=== PATIENT | male | born 1990 | race Caucasian/White ===

== ENCOUNTER 2017-07-02 01:00 | Emergency (ER) | payer SELFPAY ==
[~2017-07-02] VITALS: Ht 175.3 cm; Wt 87.5 kg
[~2017-07-02 01:00] MED LIST: CYCL10TA9 PO; HYDR-34 PO; IBP800T PO; NYQUIL
--- OUTSIDE RECORDS SUMMARY | 2017-07-02 01:07 | XMS REPORT | Continuity of Care Document ---
Author Author [facility] Address Unknown Phone Unavailable Allergies Medications Problems Date Dx Coded Attending Type Code Diagnosis Diagnosed By 04/19/2014 LOUIE LONGORIA APRN 382.9 OTITIS MEDIA Procedures Results Encounters ACCT No. Visit Date/Time Discharge Status Pt. Type Provider Facility Loc./Unit Complaint [id number] 04/19/2014 07:48:00 04/19/2014 23: 59:59 CLS Outpatient LOUIE LONGORIA APRN
[2017-07-02] MEDS ORDERED: TETANUS,DIPTH,PERTUSS P/F (BOOSTRIX) 0.5 ML VIAL IM ONE (01:30)
[2017-07-02] MEDS ORDERED: RX-MUPIROCIN (BACTROBAN) 2% OINT 22 GM TUBE TOP STA (01:31)
--- NOTE | 2017-07-02 01:35 | ED Upper Extremity ---
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 NO ACTIVE BLEEDING NOTED AT THIS TIME. AVULSION NOTED TO TIP OF THUMB. NO OTHER C/O VOICED Nursing Sepsis Screen: No Definite Risk Source: patient History of Present Illness Time seen by provider: 01:20 Initial Comments PT STATES HE WAS WORKING AT [employer] AND WAS CUTTING MEAT AND CUT THE TIP OF HIS THUMB OCCURRED AROUND 2100 TONIGHT PT CONTINUED TO WORK AND FINISHED HIS SHIFT PT STATES HIS EMPLOYER WAS AWARE OF INJURY, BUT PT CAME TO ER ON HIS OWN. STATES A TEACHER OF GIFTED STUDENTS CO-WORKER WIPED IT OFF WITH ALCOHOL AND HE WRAPPED IT IN DUCT TAPE PT IS RIGHT HANDED NO PRIOR INJURY TO LEFT THUMB PT IS NOT UP TO DATE ON TETANUS VACCINATION PCP: DR. BUSBY Allergies and Home Medications Allergies Coded Allergies: No Known Drug Allergies (Unverified , 10/28/10) Home Medications Cyclobenzaprine Hcl 10 Mg Tablet, 1 EACH PO TID PRN, #14 Ref 0 Prescribed by: RUKHSANA QUINN on 07/05/1037 Hydrocodone Bit/Acetaminophen 1 Ea Tablet, 1 TAB PO Q4H PRN, #10 Ref 0 Prescribed by: RUKHSANA QUINN on 07/05/1037 Ibuprofen 800 Mg Tablet, 1 EACH PO TID PRN, #14 Ref 0 Prescribed by: RUKHSANA QUINN on 07/05/1037 [Nyquil] , (Reported) Constitutional: no symptoms reported Musculoskeletal: see HPI Skin: see HPI Psychiatric/Neurological: No Symptoms Reported Past Teyhqqx-Iijwui-Jginjg Hx Patient Social History Alcohol Use: Denies Use Recreational Drug Use: No Smoking Status: Never a Smoker Recent Foreign Travel: No Contact w/Someone Who Travel: No Recent Infectious Disease Expo: No Recent Hopitalizations: No Physical Abuse: No Sexual Abuse: No Mistreated: No Fear: No Immunizations Up To Date Tetanus Booster (TDap): More than 5yrs Surgeries History of Surgeries: Yes (LT EAR ) Respiratory History of Respiratory Disorde: No Cardiovascular History of Cardiac Disorders: No Neurological History of Neurological Disord: No Genitourinary History of Genitourinary Disor: No Gastrointestinal History of Gastrointestinal Di: No Musculoskeletal History of Musculoskeletal Dis: No Endocrine History of Endocrine Disorders: No HEENT History of HEENT Disorders: No Cancer History of Cancer: No Psychosocial History of Psychiatric Problem: No Suicide Risk Score: 0 Integumentary History of Skin or Integumenta: No Blood Transfusions History of Blood Disorders: No Physical Exam Vital Signs Vital Sign - Last 12Hours 07/02/17 01:19 Temp 98.1 Pulse 84 Resp 20 B/P (MAP) 137/87 Pulse Ox 98 O2 Delivery Room Air Capillary Refill : Less Than 3 Seconds General Appearance: WD/WN, no apparent distress Hand: Left (THUMB WITH SUPERFICIAL, CIRCULAR AVULSION OF SKIN FROM TIP OF THUMB --APPROX 1/2 CM DIAMETER. NO BLEEDING. . MOTOR/SENSORY/VASCUALR INTACT. 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, no motor/sensory deficits, alert, normal mood/affect, oriented x 3 Skin: normal color, warm/dry Progress/Results/Core Measures Results/Orders My Orders Orders - HASEEB FELDMAN DO Dipht,Pertuss(Acell),Tet Adult (Boostrix (07/02/17 01:30) Rx-Mupirocin 2% Oint (Rx-Bactroban) (07/02/17 01:31) Wound Dressing-Ed (07/02/17 01:31) Medications Given in ED Current Medications Medications Dose Ordered Sig/Kevin Route Start Time Stop Time Status Last Admin Dose Admin Diphtheria/ Tetanus/Acell Pertussis 0.5 ml ONCE ONCE IM 07/02/17 01:30 07/02/17 01:32 DC 07/02/17 01:32 0.5 ML Vital Signs/I&O Vital Sign - Last 12Hours 07/02/17 01:19 Temp 98.1 Pulse 84 Resp 20 B/P (MAP) 137/87 Pulse Ox 98 O2 Delivery Room Air Blood Pressure Mean: 104 Progress Note : Progress Note WOUND CLEANSED WITH BETASEPT, DRESSED WITH BACTROBAN AND GAUZE. Departure Impression Impression: Primary Impression: Avulsion of skin of left thumb Additional Impression: Uwaqfzlksy-amowmckev-zkusebn (DPT) vaccination administered at current visit Disposition: HOME, SELF-CARE Condition: Stable Departure-Patient Inst. Referrals: BEVERLY BUSBY DO (PCP/Family) Primary Care Physician Patient Instructions: Diphtheria and Tetanus Toxoids, and Acellular Pertussis Vaccine, SKIN AVULSION Add. Discharge Instructions: CLEAN WOUND 3 TIMES A DAY WITH ANTIBACTERIAL SOAP AND WATER, APPLY ANTIBIOTIC OINTMENT AND FRESH DRESSING 3 TIMES A DAY--OTHER CASEY KEEP CLEAN AND DRY KEEP AREA COVERED WHILE AT WORK TYLENOL AND MOTRIN NEEDED FOR PAIN FOLLOW UP WITH DR. BUSBY IF PROBLEMS All discharge instructions reviewed with patient and/or family. Voiced understanding. HASEEB FELDMAN DO Jul 02, 2017 01:35
[2017-07-02 02:09] VITALS: BP 116/68
== END 2017-07-02 02:09 | disposition home or self-care (01) ==
LOC: EDUNIT# 01:00 → ER 01:05
DX: S61.002A Unspecified open wound of left thumb without damage to nail, initial encounter (principal); Z23 Encounter for immunization; W26.0XXA Contact with knife, initial encounter; Y92.511 Restaurant or cafe as the place of occurrence of the external cause
CPT/HCPCS: 90715; 99284

== ENCOUNTER → 2018-09-22 | Outpatient (CLI) | payer BC ==
[~2018-09-22] MED LIST changes: +IOHEXOL 350 MG/ML 100 ML (OMNIPAQUE 350) VIAL IV ONE; +NS 100 ML (IVPB) BAG IV ONE; +RECEIVED CONTRAST (Hold Metformin) IV SCH
[2018-09-22 15:45] LABS: BUN/CREATININE RATIO 18; CREATININE SERUM 1.01 MG/DL (0.60-1.30); GFR ESTIMATED > 60
--- NOTE | 2018-09-22 16:48 | Diagnostic Imaging Report ---
PROCEDURE: CT neck soft tissue with contrast. TECHNIQUE: Multiple contiguous axial images were obtained through the neck after the administration of contrast. INDICATION: Dysphagia. FINDINGS: Epiglottis appears normal. Larynx appears normal. Parotid glands are normal. Submandibular glands appear normal. Neurovascular bundles appear normal. There is no prevertebral soft tissue swelling. There is no pharyngeal mucosal thickening. Tonsils are not enlarged. There is a 1 cm nodule in the anterolateral aspect of the right lobe of the thyroid. There are small lymph nodes in the anterior cervical chain which are likely reactive. IMPRESSION: Unremarkable CT of the soft tissues of the neck. Dictated by: Dictated on workstation # [id number]
== END ==
LOC: RAD 15:12
PROVIDERS: ATTEND Otolaryngology Otolaryngology/Facial Plastic Surgery
DX: F45.8 Other somatoform disorders (principal); K14.8 Other diseases of tongue; J35.8 Other chronic diseases of tonsils and adenoids; R13.10 Dysphagia, unspecified
CPT/HCPCS: 36415; 70491; 82565; 84520

== ENCOUNTER → 2018-10-03 | Outpatient (CLI) | payer BC ==
[~2018-10-03] MED LIST changes: -IOHEXOL 350 MG/ML 100 ML (OMNIPAQUE 350) VIAL IV ONE; -NS 100 ML (IVPB) BAG IV ONE; -RECEIVED CONTRAST (Hold Metformin) IV SCH
--- NOTE | 2018-10-04 08:26 | Diagnostic Imaging Report ---
PROCEDURE: US Thyroid. TECHNIQUE: Multiple real-time grayscale images were obtained of the thyroid in various projections. INDICATION: Thyroid nodule. FINDINGS: There are no prior thyroid ultrasound examinations available for comparison. The recent CT neck exam performed on 09/22/2018 did note a well-circumscribed 1 cm rounded area of low density in the right lobe of the thyroid. On this study, there is a 1.0 x 1.4 x 1.2 cm solid nodule in this area. In a patient of this age this finding is unlikely to be related to malignant process. Even so, if a tissue diagnosis is desired, an ultrasound-guided biopsy would be recommended. If there is no intervention at this time, then a short-term (six-month) followup thyroid ultrasound exam should be obtained. There also appear to be a few small hypoechoic lesions in the midportion of the left lobe. The largest of these measures just under 1 cm in size. I suspect that these are benign. There also appears to be a similar-sized hypoechoic lesion in inferior pole of the right lobe. The thyroid gland itself is borderline enlarged. The right lobe measures 5.9 x 2.4 x 2.2 cm while the left lobe is estimated to be 5.0 x 1.6 x 2.2 cm (normal gland size 4-5 x 2 x 2 cm or less). IMPRESSION: 1. There is a 1.0 x 1.4 x 1.2 cm solid nodule in the superior pole of the right lobe of the thyroid. Most likely, this corresponds to the density seen on the CT exam. Recommendations, as above. 2. The subcentimeter hypoechoic areas in the left lobe and in the inferior pole of the right lobe are most likely benign. Dictated by: Dictated on workstation # [id number]
== END ==
LOC: RAD 15:06
PROVIDERS: ATTEND Otolaryngology Otolaryngology/Facial Plastic Surgery
DX: E04.1 Nontoxic single thyroid nodule (principal)
CPT/HCPCS: 76536

== ENCOUNTER 2020-08-01 19:28 | Emergency (ER) | payer BC ==
[~2020-08-01] VITALS: Ht 175 cm; Wt 102.0 kg
[2020-08-01] MEDS ORDERED: LACTATED RINGERS 1,000 ML IV ONE ×3 (19:55→21:21)
--- NOTE | 2020-08-01 20:20 | ED General ---
General Chief Complaint: Fever-Adult/Adol Stated Complaint: FEVER;MUSCLE ACHES Nursing Triage Note: patient reports low grade fever and muscle cramps Nursing Sepsis Screen: No Definite Risk Source of Information: Patient Exam Limitations: No Limitations History of Present Illness Date Seen by Provider: Aug 01, 2020 Time Seen by Provider: 19:45 Initial Comments This 29-year-old gentleman presents to the emergency room with 8 days of elevated blood subfebrile temperatures around 100 degrees. He has also had diarrhea and more recently has developed muscle cramping. He had a negative COVID-19 test early in the week. His employer is not allowing him to return to work until he has another negative test. He is afebrile at present but has some mild tachycardia between 110 and 120. Earlier today he felt a racing heart or palpitations. He denies any cough or shortness of breath. He has had no loss of taste or smell. Allergies and Home Medications Allergies Coded Allergies: No Known Drug Allergies (Unverified , 10/28/10) Home Medications Cyclobenzaprine Hcl 10 Mg Tablet, 1 EACH PO TID PRN Prescribed by: RUKHSANA QUINN on 07/05/1037 Hydrocodone Bit/Acetaminophen 1 Ea Tablet, 1 TAB PO Q4H PRN Prescribed by: RUKHSANA QUINN on 07/05/1037 Ibuprofen 800 Mg Tablet, 1 EACH PO TID PRN Prescribed by: RUKHSANA QUINN on 07/05/1037 Patient Home Medication List Home Medication List Reviewed: Yes Review of Systems Review of Systems Constitutional: see HPI EENTM: no symptoms reported Respiratory: no symptoms reported Cardiovascular: see HPI Gastrointestinal: see HPI Genitourinary: no symptoms reported Musculoskeletal: see HPI Skin: no symptoms reported Psychiatric/Neurological: No Symptoms Reported Hematologic/Lymphatic: No Symptoms Reported Immunological/Allergic: no symptoms reported Past Reuzsrw-Ygaeqs-Oznjmj Hx Patient Social History Alcohol Use: Denies Use Recreational Drug Use: No Smoking Status: Never a Smoker Recent Foreign Travel: No Contact w/Someone Who Travel: No Recent Infectious Disease Expo: No Recent Hopitalizations: No Immunizations Up To Date Tetanus Booster (TDap): More than 5yrs Past Medical History Surgeries: Yes (LT EAR ) Respiratory: No Cardiac: No Neurological: No Genitourinary: No Gastrointestinal: No Musculoskeletal: No Endocrine: No HEENT: No Cancer: No Psychosocial: No Integumentary: No Blood Disorders: No Physical Exam Vital Signs Vital Signs - First Documented 08/01/20 19:49 Temp 37.2 Pulse 115 Resp 18 B/P (MAP) 137/83 (101) Pulse Ox 98 Capillary Refill : Less Than 3 Seconds Height, Weight, BMI Height: 5'9.00" Weight: 193lbs. oz. 87.732585iw; 33.00 BMI Method:Stated General Appearance: No Apparent Distress, WD/WN HEENT: PERRL/EOMI, Normal ENT Inspection, Other (Mucous membranes somewhat dry) Neck: Normal Inspection Respiratory: Lungs Clear, Normal Breath Sounds, No Accessory Muscle Use, No Respiratory Distress Cardiovascular: No Edema, No Murmur, Tachycardia (Regular) Gastrointestinal: Normal Bowel Sounds, Non Tender, Soft Extremity: Normal Inspection, No Pedal Edema, Other (Tenderness in the lower extremities is equal to generalized muscle aching and tenderness throughout the body) Neurologic/Psychiatric: Alert, Oriented x3, No Motor/Sensory Deficits, Normal Mood/Affect, rn radiation II-XII Norm as Tested Skin: Normal Color, Warm/Dry Progress/Results/Core Measures Suspected Sepsis Recent Fever Within 48 Hours: No Infection Criteria Present: None New/Unexplained Altered Menta: No Sepsis Screen: No Definite Risk SIRS Temperature: Pulse: 115 Respiratory Rate: 18 Laboratory Tests 08/01/20 20:00: White Blood Count 16.5H Blood Pressure 137 /83 Mean: 101 Laboratory Tests 08/01/20 20:00: Creatinine 1.08, Platelet Count 57L, Total Bilirubin 0.9 Results/Orders Lab Results Laboratory Tests Test 08/01/20 20:00 08/01/20 21:20 08/01/20 21:25 Range/Units White Blood Count 16.5 H 4.3-11.0 10^3/uL Red Blood Count 4.52 4.30-5.52 10^6/uL Hemoglobin 14.0 13.3-17.7 g/dL Hematocrit 42 40-54 % Mean Corpuscular Volume 94 80-99 fL Mean Corpuscular Hemoglobin 31 25-34 pg Mean Corpuscular Hemoglobin Concent 33 32-36 g/dL Red Cell Distribution Width 12.1 10.0-14.5 % Platelet Count 57 L 130-400 10^3/uL Mean Platelet Volume 10.0 9.0-12.2 fL Immature Granulocyte % (Auto) 0 % Neutrophils (%) (Auto) 72 42-75 % Lymphocytes (%) (Auto) 20 12-44 % Monocytes (%) (Auto) 7 0-12 % Eosinophils (%) (Auto) 1 0-10 % Basophils (%) (Auto) 0 0-10 % Neutrophils # (Auto) 12.0 H 1.8-7.8 10^3/uL Lymphocytes # (Auto) 3.3 1.0-4.0 10^3/uL Monocytes # (Auto) 1.1 H 0.0-1.0 10^3/uL Eosinophils # (Auto) 0.1 0.0-0.3 10^3/uL Basophils # (Auto) 0.0 0.0-0.1 10^3/uL Immature Granulocyte # (Auto) 0.1 0.0-0.1 10^3/uL Neutrophils % (Manual) 79 % Lymphocytes % (Manual) 17 % Monocytes % (Manual) 3 % Eosinophils % (Manual) 0 % Basophils % (Manual) 1 % Band Neutrophils 0 % Blood Morphology Comment NORMAL Sodium Level 139 135-145 MMOL/L Potassium Level 4.5 3.6-5.0 MMOL/L Chloride Level 104 98-107 MMOL/L Carbon Dioxide Level 22 21-32 MMOL/L Anion Gap 13 5-14 MMOL/L Blood Urea Nitrogen 26 H 7-18 MG/DL Creatinine 1.08 0.60-1.30 MG/DL Estimat Glomerular Filtration Rate > 60 BUN/Creatinine Ratio 24 Glucose Level 93 70-105 MG/DL Calcium Level 9.2 8.5-10.1 MG/DL Corrected Calcium 8.9 8.5-10.1 MG/DL Magnesium Level 1.7 1.6-2.4 MG/DL Total Bilirubin 0.9 0.1-1.0 MG/DL Aspartate Amino Transf (AST/SGOT) 44 H 5-34 U/L Alanine Aminotransferase (ALT/SGPT) 43 0-55 U/L Alkaline Phosphatase 60 40-136 U/L Total Creatine Kinase 618 H 30-200 U/L C-Reactive Protein High Sensitivity 3.49 H 0.00-0.50 MG/DL Total Protein 7.8 6.4-8.2 GM/DL Albumin 4.4 3.2-4.5 GM/DL Procalcitonin 0.15 H <0.10 NG/ML Coronavirus 2019 (YAJAIRA) Negative Negative Urine Color YELLOW Urine Clarity CLEAR Urine pH 6.0 5-9 Urine Specific [place] >=1.030 1.016-1.022 Urine Protein NEGATIVE NEGATIVE Urine Glucose (UA) NEGATIVE NEGATIVE Urine Ketones NEGATIVE NEGATIVE Urine Nitrite NEGATIVE NEGATIVE Urine Bilirubin NEGATIVE NEGATIVE Urine Urobilinogen 0.2 < = 1.0 MG/DL Urine Leukocyte Esterase NEGATIVE NEGATIVE Urine RBC (Auto) 1+ H NEGATIVE Urine RBC 0-2 /HPF Urine WBC 0-2 /HPF Urine Squamous Epithelial Cells RARE /HPF Urine Crystals PRESENT H /LPF Urine Amorphous Sediment FEW DENNY URATES H /LPF Urine Bacteria TRACE /HPF Urine Casts PRESENT /LPF Urine Hyaline Casts 2-5 H /LPF Urine Mucus SMALL H /LPF Urine Culture Indicated NO Micro Results Microbiology 08/01/20 Influenza Types A,B Antigen (JACKI) - Final, Complete My Orders Orders - GURDEEP MCDONALD MD Ed Iv/Invasive Line Start (08/01/20 19:55) Lactated Ringers (Lr 1000 Ml Iv Solution (08/01/20 19:55) Lactated Ringers (Lr 1000 Ml Iv Solution (08/01/20 19:55) Cbc With Automated Diff (08/01/20 20:11) Comprehensive Metabolic Panel (08/01/20 20:11) Creatine Kinase (08/01/20 20:11) Magnesium (08/01/20 20:11) Influenza A And B Antigens (08/01/20 20:11) Hs C Reactive Protein (08/01/20 20:12) Manual Differential (08/01/20 20:00) Chest 1 View, Ap/Pa Only (08/01/20 21:19) Ua Culture If Indicated (08/01/20 21:19) Covid 19 Inhouse Test (08/01/20 21:19) Ed Iv/Invasive Line Start (08/01/20 21:21) Lactated Ringers (Lr 1000 Ml Iv Solution (08/01/20 21:21) Procalcitonin (Pct) (08/01/20 21:23) Medications Given in ED Current Medications Medications Dose Ordered Sig/Kevin Route Start Time Stop Time Status Last Admin Dose Admin Lactated Ringer's 1,000 ml @ 0 mls/hr Q0M ONCE IV 08/01/20 19:55 08/01/20 19:56 DC 08/01/20 20:01 0 MLS/HR Lactated Ringer's 1,000 ml @ 0 mls/hr Q0M ONCE IV 08/01/20 21:21 08/01/20 21:23 DC 08/01/20 21:37 0 MLS/HR Vital Signs/I&O 08/01/20 08/01/20 19:49 22:47 Temp 37.2 36.9 Pulse 115 87 Resp 18 18 B/P (MAP) 137/83 (101) 127/71 (101) Pulse Ox 98 98 Capillary Refill : Less Than 3 Seconds Blood Pressure Mean: 101 Progress Note #1: Progress Note Patient was seen and examined. We are checking electrolytes, CK, and CRP. A liter of LR is infusing. We have not yet made a determination on Covid screening per his employer's request. Influenza swab is pending. Progress Note #2: Progress Note Rapid flu test was negative. This was followed by a rapid Covid swab, chest x- ray, and urinalysis. No source of infection was ever identified. A second liter of IV fluid was infused and patient was discharged. Diagnostic Imaging Diagonstic Imaging: Xray Plain Films/CT/US/NM/MRI: chest Comments Chest x-ray viewed by me and report reviewed. See report below: NAME: BROOKE MAGANA MED REC#: [id number] PT STATUS: REG ER : 1990 PHYSICIAN: GURDEEP MCDONALD MD ADMIT DATE: 08/01/20/ER Signed * Date of Exam:08/01/20 CHEST 1 VIEW, AP/PA ONLY EXAMINATION: Chest 1 view HISTORY: Tachycardia, Leukocytosis COMPARISON: Chest radiograph 02/07/2010 FINDINGS: Heart size and pulmonary vasculature are normal. The lungs are clear without consolidation, pleural effusion, or pneumothorax. The osseous structures are intact. IMPRESSION: 1. No acute radiographic abnormality in the chest. Dictated by: Dictated on workstation # [id number] Dict: 08/01/202146 Trans: 08/01/202146 [facility] [phone] Interpreted by: DENISE MACIAS DO Electronically signed by: DENISE MACIAS DO 08/01/207 Departure Impression Primary Impression: Diarrhea Qualified Codes: R19.7 - Diarrhea, unspecified Additional Impressions: Elevated creatine kinase Leukocytosis Qualified Codes: D72.829 - Elevated white blood cell count, unspecified Muscle cramps Thrombocytopenia Disposition: 01 HOME, SELF-CARE Condition: Improved Departure-Patient Inst. Decision time for Depature: 22:24 Referrals: NO,LOCAL PHYSICIAN (PCP/Family) Primary Care Physician Patient Instructions: Diarrhea in Adolescents and Adults Add. Discharge Instructions: Start with a clear liquid diet and drink plenty of clear liquids. Gradually advance your diet to a well-balanced diet as tolerated. Avoid milk products or fatty or greasy foods until diarrhea has resolved for couple of days. Drink plenty of clear liquids at work. Rest when necessary if you are experiencing cramping or severe muscle pain. Establish with a primary care provider and discuss your leukocytosis, low platelets, and any other health issues you may have. Please try to be seen within the next week. Return to the ER if you have worsening symptoms or unusual bleeding, including blood in the stool or urine. Return to the hospital on Tuesday to have labs drawn again to recheck your plate lets and white blood cell count. Your COVID-19 test was NEGATIVE. All discharge instructions reviewed with patient and/or family. Voiced understanding. Work/School Note: Work Release Form Date Seen in the Emergency Department: Aug 01, 2020 Return to Work: Aug 02, 2020 Restrictions: Return-No Fever (24hrs) Other Restrictions Listed Below: Return when no temperature over 100.3 for 24 hours. Restrictions: COVID-19 test was NEGATIVE August 01, 2020. GURDEEP MCDONALD MD Aug 01, 2020 20:20
[2020-08-01 20:40] LABS: BASOPHILS % (AUTO) 0 % (0-10); EOSINOPHILS # (AUTO) 0.1 10^3/uL (0.0-0.3); EOSINOPHILS % (AUTO) 1 % (0-10); HEMATOCRIT 42 % (40-54); LYMPHOCYTES # (AUTO) 3.3 10^3/uL (1.0-4.0); LYMPHOCYTES % (AUTO) 20 % (12-44); MEAN CORPUSCULAR HEMOGLOBIN 31 pg (25-34); MEAN CORPUSCULAR HGB CONC 33 g/dL (32-36); MEAN CORPUSCULAR VOLUME 94 fL (80-99); MONOCYTES # (AUTO) 1.1 10^3/uL (0.0-1.0); MONOCYTES % (AUTO) 7 % (0-12); NEUTROPHILS % (AUTO) 72 % (42-75); PLATELET COUNT 57 10^3/uL (130-400); WHITE BLOOD COUNT 16.5 10^3/uL (4.3-11.0)
[2020-08-01 20:43] LABS: ALANINE AMINOTRANSFERASE 43 U/L (0-55); ALBUMIN 4.4 GM/DL (3.2-4.5); ALKALINE PHOSPHATASE 60 U/L (40-136); BILIRUBIN,TOTAL 0.9 MG/DL (0.1-1.0); BUN/CREATININE RATIO 24; CALCIUM 9.2 MG/DL (8.5-10.1); CARBON DIOXIDE 22 MMOL/L (21-32); CHLORIDE 104 MMOL/L (98-107); CREATINE KINASE 618 U/L (30-200); CREATININE SERUM 1.08 MG/DL (0.60-1.30); GFR ESTIMATED > 60; GLUCOSE 93 MG/DL (70-105); MAGNESIUM 1.7 MG/DL (1.6-2.4); POTASSIUM 4.5 MMOL/L (3.6-5.0); SODIUM 139 MMOL/L (135-145); TOTAL PROTEIN 7.8 GM/DL (6.4-8.2)
[2020-08-01 20:57] LABS: BAND NEUTROPHILS 0 %; BASOPHILS % (MANUAL) 1 %; EOSINOPHILS % (MANUAL) 0 %; LYMPHOCYTES % (MANUAL) 17 %; MONOCYTES % (MANUAL) 3 %; NEUTROPHILS % (MANUAL) 79 %; RBC MORPH NORMAL
[2020-08-01 21:37] LABS: BILIRUBIN,URINE NEGATIVE (NEGATIVE); CLARITY,URINE CLEAR; COLOR,URINE YELLOW; GLUCOSE, URINE (UA) NEGATIVE (NEGATIVE); KETONES,URINE NEGATIVE (NEGATIVE); LEUKOCYTE ESTERASE ,URINE NEGATIVE (NEGATIVE); NITRITE,URINE NEGATIVE (NEGATIVE); PROTEIN,URINE NEGATIVE (NEGATIVE)
[2020-08-01 21:44] LABS: AMORPHOUS SEDIMENT,UR FEW AMOR URATES /LPF; BACTERIA,URINE TRACE /HPF; RBC,URINE 0-2 /HPF; SQUAMOUS EPITHELIAL CELL,UR RARE /HPF; WBC,URINE 0-2 /HPF
--- NOTE | 2020-08-01 21:48 | Diagnostic Imaging Report ---
EXAMINATION: Chest 1 view HISTORY: Tachycardia, Leukocytosis COMPARISON: Chest radiograph 02/07/2010 FINDINGS: Heart size and pulmonary vasculature are normal. The lungs are clear without consolidation, pleural effusion, or pneumothorax. The osseous structures are intact. IMPRESSION: 1. No acute radiographic abnormality in the chest. Dictated by: Dictated on workstation # [id number]
[2020-08-01 22:47] VITALS: BP 127/71
== END 2020-08-01 22:47 | disposition home or self-care (01) ==
LOC: EDUNIT# 19:28 → ER 19:31
DX: R19.7 Diarrhea, unspecified (principal); R79.89 Other specified abnormal findings of blood chemistry; D72.829 Elevated white blood cell count, unspecified; R25.2 Cramp and spasm; D69.6 Thrombocytopenia, unspecified; Z20.828 Contact with and (suspected) exposure to other viral communicable diseases
CPT/HCPCS: 71045; 80053; 81000; 82550; 83735; 84145; 85007; 85027; 86141; 87804; 99284; U0002; 36415; 87635

== ENCOUNTER 2020-08-04 15:32 | Outpatient (RCR) | payer BC | END 2020-11-02 | disposition home or self-care (01) | LOC: LAB 15:32 → EDSTATUS 15:33 → LAB 15:33 | PROVIDERS: ATTEND Family Medicine | DX: D72.829 Elevated white blood cell count, unspecified (principal); D69.6 Thrombocytopenia, unspecified; R19.7 Diarrhea, unspecified | CPT/HCPCS: 36415; 82550; 84443; 87328; 87329 ==

== ENCOUNTER 2020-12-10 15:56 | Emergency (ER) | payer BC ==
[~2020-12-10] VITALS: Ht 177 cm; Wt 98.0 kg
[2020-12-10 16:37] LABS: BASOPHILS % (AUTO) 0 % (0-10); EOSINOPHILS # (AUTO) 0.1 10^3/uL (0.0-0.3); EOSINOPHILS % (AUTO) 2 % (0-10); HEMATOCRIT 39 % (40-54); HEMOGLOBIN 13.2 g/dL (13.3-17.7); LYMPHOCYTES # (AUTO) 1.7 10^3/uL (1.0-4.0); LYMPHOCYTES % (AUTO) 33 % (12-44); MEAN CORPUSCULAR HEMOGLOBIN 31 pg (25-34); MEAN CORPUSCULAR HGB CONC 34 g/dL (32-36); MEAN CORPUSCULAR VOLUME 90 fL (80-99); MEAN PLATELET VOLUME 8.9 fL (9.0-12.2); MONOCYTES # (AUTO) 0.9 10^3/uL (0.0-1.0); MONOCYTES % (AUTO) 19 % (0-12); NEUTROPHILS # (AUTO) 2.3 10^3/uL (1.8-7.8); NEUTROPHILS % (AUTO) 46 % (42-75); PLATELET COUNT 198 10^3/uL (130-400)
[2020-12-10 16:46] LABS: BILIRUBIN,URINE NEGATIVE (NEGATIVE); CLARITY,URINE CLEAR; COLOR,URINE YELLOW; GLUCOSE, URINE (UA) NEGATIVE (NEGATIVE); KETONES,URINE NEGATIVE (NEGATIVE); LEUKOCYTE ESTERASE ,URINE NEGATIVE (NEGATIVE); NITRITE,URINE NEGATIVE (NEGATIVE); PROTEIN,URINE NEGATIVE (NEGATIVE)
--- NOTE | 2020-12-10 16:46 | ED General ---
General Chief Complaint: General Problems/Pain Stated Complaint: FEVER / WEAKNESS / FATIGUE Nursing Triage Note: PT CO OF BEING SICK SINCE LAST VISIT, PT STATES HAS NEVER REALLY FELT WELL SINCE LAST VISIT, STATES HAS FEVER REGULARLY BUT DOESNT HAVE THERMOMETER AT HOME. STATES HAS SOME SOA AT TIMES AND FATIGUE. DENIES FOLLOW UP W PCP Nursing Sepsis Screen: No Definite Risk History of Present Illness Date Seen by Provider: Dec 10, 2020 Time Seen by Provider: 16:25 Initial Comments 30-year-old male presents for not feeling well. His symptoms are very vague. He denies any nausea, vomiting, or diarrhea, which is what he was seen for in July 2020. He reports mainly being fatigued, occasional shortness of breath, and fever, but he does not have a thermometer for a documented temperature. He attempted to make an appointment with his primary care provider, however he did not follow-up with a phone call today to schedule it. He was told over a year ago about a thyroid nodule and decided to try conservative measures and has not followed up with Dr. Jalloh. He denies any chest pain or shortness of breath at the present time. He reports his appetite has been normal and he has probably experienced some weight gain. 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 He has not been tested for COVID-19 since Jul 2020, no known exposure. He denies loss of taste or smell. He has not received the COVID-19 vaccine. Timing/Duration: Intermittent Severity: Mild Associated Systoms: No Chest Pain, No Cough, No Diaphoresis, No Fever/Chills, No Headaches, No Loss of Appetite; Malaise; No Nausea/Vomiting, No Rash, No Seizure; Shortness of Air; No Syncope; Weakness Allergies and Home Medications Allergies Coded Allergies: No Known Drug Allergies (Unverified , 10/28/10) Home Medications Cyclobenzaprine Hcl 10 Mg Tablet, 1 EACH PO TID PRN Prescribed by: RUKHSANA QUINN on 07/05/1037 Hydrocodone Bit/Acetaminophen 1 Ea Tablet, 1 TAB PO Q4H PRN Prescribed by: RUKHSANA QUINN on 07/05/1037 Ibuprofen 800 Mg Tablet, 1 EACH PO TID PRN Prescribed by: RUKHSANA QUINN on 07/05/1037 Patient Home Medication List Home Medication List Reviewed: Yes Review of Systems Review of Systems Constitutional: see HPI, malaise, weakness EENTM: see HPI, no symptoms reported Respiratory: see HPI; No cough; dyspnea on exertion Gastrointestinal: no symptoms reported, see HPI Genitourinary: no symptoms reported, see HPI Musculoskeletal: no symptoms reported, see HPI Skin: no symptoms reported, see HPI All Other Systems Reviewed Negative Unless Noted: Yes Past Aydxzpr-Tcfdqw-Dnkafo Hx Past Med/Social Hx: Reviewed Nursing Past Med/Soc Hx Patient Social History Alcohol Use: Denies Use Smoking Status: Current Someday Smoker Type Used: Cigarettes, Electronic/Vapor Recent Infectious Disease Expo: No Recent Hopitalizations: No Immunizations Up To Date Tetanus Booster (TDap): More than 5yrs Past Medical History Surgeries: Yes (LT EAR ) Respiratory: No Cardiac: No Neurological: No Genitourinary: No Gastrointestinal: No Musculoskeletal: No Endocrine: No HEENT: No Cancer: No Psychosocial: No Integumentary: No Blood Disorders: No Physical Exam Vital Signs Vital Signs - First Documented 12/10/20 16:02 Temp 37.6 Pulse 107 Resp 18 B/P (MAP) 138/97 (111) Pulse Ox 98 Capillary Refill : Less Than 3 Seconds Height, Weight, BMI Height: 5'9.00" Weight: 193lbs. oz. 87.760656pf; 31.00 BMI Method:Stated General Appearance: No Apparent Distress, WD/WN Eyes: Bilateral Eye Normal Inspection, Bilateral Eye PERRL, Bilateral Eye EOMI HEENT: PERRL/EOMI, TMs Normal, Normal ENT Inspection, Pharynx Normal Neck: Full Range of Motion, Normal Inspection, Non Tender, Supple, Other (small nodule to thyroid, right side. ) Respiratory: Chest Non Tender, Lungs Clear, Normal Breath Sounds Cardiovascular: Regular Rate, Rhythm, No Edema, Normal Peripheral Pulses Gastrointestinal: Normal Bowel Sounds, Non Tender, Soft Extremity: Normal Capillary Refill, Normal Inspection, Normal Range of Motion, Non Tender, No Calf Tenderness, No Pedal Edema Neurologic/Psychiatric: Alert, Oriented x3, No Motor/Sensory Deficits, Normal Mood/Affect Skin: Normal Color, Warm/Dry Progress/Results/Core Measures Suspected Sepsis Recent Fever Within 48 Hours: Yes Infection Criteria Present: None New/Unexplained Altered Menta: No Sepsis Screen: No Definite Risk SIRS Temperature: Pulse: 107 Respiratory Rate: 18 Laboratory Tests 12/10/20 16:25: White Blood Count 5.0 Blood Pressure 138 /97 Mean: 111 Laboratory Tests 12/10/20 16:25: Creatinine 0.99, Platelet Count 198, Total Bilirubin 0.4 Results/Orders Lab Results Laboratory Tests Test 12/10/20 16:25 12/10/20 16:40 Range/Units White Blood Count 5.0 4.3-11.0 10^3/uL Red Blood Count 4.32 4.30-5.52 10^6/uL Hemoglobin 13.2 L 13.3-17.7 g/dL Hematocrit 39 L 40-54 % Mean Corpuscular Volume 90 80-99 fL Mean Corpuscular Hemoglobin 31 25-34 pg Mean Corpuscular Hemoglobin Concent 34 32-36 g/dL Red Cell Distribution Width 12.1 10.0-14.5 % Platelet Count 198 130-400 10^3/uL Mean Platelet Volume 8.9 L 9.0-12.2 fL Immature Granulocyte % (Auto) 0 % Neutrophils (%) (Auto) 46 42-75 % Lymphocytes (%) (Auto) 33 12-44 % Monocytes (%) (Auto) 19 H 0-12 % Eosinophils (%) (Auto) 2 0-10 % Basophils (%) (Auto) 0 0-10 % Neutrophils # (Auto) 2.3 1.8-7.8 10^3/uL Lymphocytes # (Auto) 1.7 1.0-4.0 10^3/uL Monocytes # (Auto) 0.9 0.0-1.0 10^3/uL Eosinophils # (Auto) 0.1 0.0-0.3 10^3/uL Basophils # (Auto) 0.0 0.0-0.1 10^3/uL Immature Granulocyte # (Auto) 0.0 0.0-0.1 10^3/uL Sodium Level 139 135-145 MMOL/L Potassium Level 4.0 3.6-5.0 MMOL/L Chloride Level 104 98-107 MMOL/L Carbon Dioxide Level 23 21-32 MMOL/L Anion Gap 12 5-14 MMOL/L Blood Urea Nitrogen 19 H 7-18 MG/DL Creatinine 0.99 0.60-1.30 MG/DL Estimat Glomerular Filtration Rate > 60 BUN/Creatinine Ratio 19 Glucose Level 101 70-105 MG/DL Calcium Level 8.9 8.5-10.1 MG/DL Corrected Calcium 8.6 8.5-10.1 MG/DL Total Bilirubin 0.4 0.1-1.0 MG/DL Aspartate Amino Transf (AST/SGOT) 52 H 5-34 U/L Alanine Aminotransferase (ALT/SGPT) 84 H 0-55 U/L Alkaline Phosphatase 68 40-136 U/L Total Protein 7.3 6.4-8.2 GM/DL Albumin 4.4 3.2-4.5 GM/DL TSH Curry Testing 1.04 0.35-4.94 UIU/ML Urine Color YELLOW Urine Clarity CLEAR Urine pH 6.0 5-9 Urine Specific Abbot 1.025 H 1.016-1.022 Urine Protein NEGATIVE NEGATIVE Urine Glucose (UA) NEGATIVE NEGATIVE Urine Ketones NEGATIVE NEGATIVE Urine Nitrite NEGATIVE NEGATIVE Urine Bilirubin NEGATIVE NEGATIVE Urine Urobilinogen 0.2 < = 1.0 MG/DL Urine Leukocyte Esterase NEGATIVE NEGATIVE Urine RBC (Auto) 1+ H NEGATIVE Urine RBC NONE /HPF Urine WBC 0-2 /HPF Urine Squamous Epithelial Cells RARE /HPF Urine Crystals NONE /LPF Urine Bacteria NEGATIVE /HPF Urine Casts NONE /LPF Urine Mucus NEGATIVE /LPF Urine Culture Indicated NO My Orders Orders - STANLEY MOMIN Cbc With Automated Diff (12/10/20 16:22) Comprehensive Metabolic Panel (12/10/20 16:22) Thyroid Analyzer (12/10/20 16:22) Ua Culture If Indicated (12/10/20 16:22) Manual Differential (12/10/20 16:25) Vital Signs/I&O 12/10/20 16:02 Temp 37.6 Pulse 107 Resp 18 B/P (MAP) 138/97 (111) Pulse Ox 98 Capillary Refill : Less Than 3 Seconds Blood Pressure Mean: 111 Departure Impression Primary Impression: Fatigue Qualified Codes: R53.82 - Chronic fatigue, unspecified Additional Impression: General medical exam Disposition: 01 HOME, SELF-CARE Condition: Improved Departure-Patient Inst. Decision time for Depature: 17:20 Referrals: NO,LOCAL PHYSICIAN (PCP/Family) Primary Care Physician Patient Instructions: Fatigue (DC) Add. Discharge Instructions: Appt with Dr. Stanford Amado 12/15/20 10 am. Begin taking a men's multivitamin daily. Increase water in your diet, 16 ounces every 2 hours while awake. Keep your follow-up appointment with your primary care provider. Return to the emergency department for new, urgent healthcare needs. All discharge instructions reviewed with patient and/or family. Voiced understanding. Copy Copies To 1: RACHNA JALLOH MD; BEVERLY BUSBY AMY ARNP Dec 10, 2020 16:46
[2020-12-10 16:51] LABS: ALBUMIN 4.4 GM/DL (3.2-4.5); CHLORIDE 104 MMOL/L (98-107); SODIUM 139 MMOL/L (135-145)
[2020-12-10 16:52] LABS: CALCIUM 8.9 MG/DL (8.5-10.1)
[2020-12-10 16:53] LABS: GLUCOSE 101 MG/DL (70-105)
[2020-12-10 16:54] LABS: TOTAL PROTEIN 7.3 GM/DL (6.4-8.2)
[2020-12-10 16:55] LABS: BILIRUBIN,TOTAL 0.4 MG/DL (0.1-1.0); CARBON DIOXIDE 23 MMOL/L (21-32)
[2020-12-10 16:57] LABS: ALKALINE PHOSPHATASE 68 U/L (40-136); CREATININE SERUM 0.99 MG/DL (0.60-1.30); GFR ESTIMATED > 60
[2020-12-10 16:58] LABS: BUN/CREATININE RATIO 19
[2020-12-10 16:58] LABS: BACTERIA,URINE NEGATIVE /HPF; SQUAMOUS EPITHELIAL CELL,UR RARE /HPF; WBC,URINE 0-2 /HPF
[2020-12-10 17:00] LABS: ALANINE AMINOTRANSFERASE 84 U/L (0-55)
[2020-12-10 17:20] LABS: TSH (THYROID ANALYZER) 1.04 UIU/ML (0.35-4.94)
[2020-12-10 17:34] LABS: EOSINOPHILS % (MANUAL) 4 %; LYMPHOCYTES % (MANUAL) 29 %; MONOCYTES % (MANUAL) 25 %; NEUTROPHILS % (MANUAL) 42 %; RBC MORPH NORMAL
[2020-12-10 17:43] VITALS: BP 138/97
== END 2020-12-10 17:42 | disposition home or self-care (01) ==
LOC: EDUNIT# 15:56 → ER 15:58
DX: R53.83 Other fatigue (principal); I10 Essential (primary) hypertension; F17.210 Nicotine dependence, cigarettes, uncomplicated; F17.290 Nicotine dependence, other tobacco product, uncomplicated; Z86.16 Personal history of COVID-19
CPT/HCPCS: 36415; 80053; 81000; 84443; 85007; 85027

== ENCOUNTER 2020-12-12 15:42 | Outpatient (CLI) | payer BC ==
[~2020-12-12] VITALS: Ht 177.8 cm; Wt 100.0 kg
[2020-12-12 15:40] VITALS: BP 148/89
[2020-12-12] MEDS ORDERED: diphenhydrAMINE 50 MG/ML INJ (BENADRYL) IV PRN (15:45)
[2020-12-12] MEDS ORDERED: EPINEPHrine INJECTION 1 MG/ML AMP IM PRN (15:45)
[2020-12-12] MEDS ORDERED: BAMLANIVIMAB (NON FORM) 700 MG in NS (IVPB) 100 ML IV ONE (15:45)
[2020-12-12 17:37] VITALS: BP 127/78
== END 2020-12-12 17:35 | disposition home or self-care (01) ==
LOC: INFUSION 15:42
PROVIDERS: ATTEND Nurse Practitioner Family
DX: Z23 Encounter for immunization (principal); U07.1 COVID-19

== ENCOUNTER 2022-05-21 21:22 | Emergency (ER) | payer BC ==
[~2022-05-21] VITALS: Ht 175 cm; Wt 101.0 kg
[2022-05-21] MEDS ORDERED: TETANUS,DIPTH,PERTUSS P/F (BOOSTRIX) 0.5 ML VIAL IM ONE (21:45)
--- NOTE | 2022-05-21 21:46 | ED Upper Extremity ---
General Stated Complaint: L RING FINGER LAC Source: patient History of Present Illness Date Seen by Provider: May 21, 2022 Time Seen by Provider: 21:35 Initial Comments PT ARRIVES VIA POV FROM HOME STATES APPROXIMATELY 30 MINUTES AGO, HE WAS WORKING IN HIS GARAGE, AND WAS USING A DRILL AND TRYING TO PUT IN A SCREW, AND THE DRILL BIT SLIPPED AND PUNCTURED HIS LEFT 4TH FINGER PAD. NO BLEEDING NOW NO MOTOR/SENSORY DEFICITS PT IS RIGHT HANDED NO PRIOR INJURY TO THIS FINGER NO OTHER INJURIES FROM THE INCIDENT NO CHRONIC MEDICAL PROBLEMS LAST TETANUS > 5 YEARS AGO PCP: NONE--GOES TO ER/URGENT CARE FOR ALL MEDICAL CARE Allergies and Home Medications Allergies Coded Allergies: No Known Drug Allergies (Unverified , 10/28/10) Patient Home Medication List Home Medication List Reviewed: Yes Cyclobenzaprine Hcl (Cyclobenzaprine Hcl) 10 Mg Tablet, 1 EACH PO TID PRN Prescribed by: RUKHSANA QUINN on 07/05/1037 Hydrocodone Bit/Acetaminophen (Vicodin Es 7.5 Mg/325 Mg) 1 Ea Tablet, 1 TAB PO Q4H PRN Prescribed by: RUKHSANA QUINN on 07/05/1037 Ibuprofen (Motrin Tablet) 800 Mg Tablet, 1 EACH PO TID PRN Prescribed by: RUKHSANA QUINN on 07/05/1037 Sulfamethoxazole/Trimethoprim (Bactrim Ds Tablet) 1 Each Tablet, 1 EACH PO BID Prescribed by: HASEEB FELDMAN on 05/21/222202 [Nyquil] , (Reported) Entered as Reported by: RAFAEL ZARATE on 10/28/10216 Review of Systems Constitutional: no symptoms reported Musculoskeletal: see HPI Skin: see HPI Psychiatric/Neurological: No Symptoms Reported Past Yvhezkb-Vxohbe-Ggdxsz Hx Patient Social History Tobacco Use?: Yes Tobacco type used: Cigarettes Smoking Status: Former Smoker (SMOKED 1/2 PPD, QUIT 10 YEARS AGO) Smokeless Tobacco Frequency: Never a User Use of E-Cig and/or Vaping [place]ldon: Never a User Substance use?: No Alcohol Use?: Yes Alcohol Frequency: Rarely Immunizations Up To Date Tetanus Booster (TDap): More than 5yrs Past Medical History Surgeries: Yes (LEFT EARDRUM RECONSTRUCTION) Ear Surgery Respiratory: No Cardiac: No Neurological: No Genitourinary: No Gastrointestinal: No Musculoskeletal: No Endocrine: No HEENT: Yes (LEFT EARDRUM RECONSTRUCTION) Cancer: No Psychosocial: No Integumentary: No Blood Disorders: No Physical Exam Vital Signs Capillary Refill : Height, Weight, BMI Height: 5'9.00" Weight: 193lbs. oz. 87.604272po; 31.00 BMI Method:Stated General Appearance: WD/WN, no apparent distress Hand: Left (LEFT 4TH FINGER PAD WITH SUPERFICIAL , STELLATE WOUND. PINPOINT ADJ ACENT "BLOOD BLISTER" NO SWELLING. NO BRUISING OTHERWISE. NO BLEEDING. FULL MOTOR/SENSORY/VASCULAR INTACT. NO EVIDENCE OF TENDON INJURY. WOUND EDGES ARE WELL APPROXIMATED. ) Neurologic/Psychiatric: no motor/sensory deficits, alert, normal mood/affect, oriented x 3 Skin: normal color, warm/dry, other ( ABOVE) Procedures/Interventions Other Wound Location FINGER PAD OF LEFT 4TH FINGER. Wound Length (cm): 0.5 Wound's Depth, Shape: superficial, stellate Wound Explored: clean Betadine Prep?: No (BETASEPT) Sterile Dressing Applied?: Yes Progress NO REPAIR REQUIRED, IT IS SMALL, SUPERFICIAL, STELLATE, APPROXIMATED, AND NOT BLEEDING. Progress/Results/Core Measures Results/Orders My Orders Orders - HASEEB FELDMAN DO Finger(S) (05/21/22 21:42) Dipht,Pertuss(Acell),Tet Adult (Boostrix (05/21/22 21:45) Wound Dressing-Ed (05/21/22 22:04) Rx-Mupirocin 2% Oint (Rx-Bactroban) (05/21/22 22:15) Rx-Trimeth/Sulfameth Ds Tab (Rx-Bactrim/ (05/21/22 22:15) Ed Ortho/Other Supplies Order (05/21/22 22:09) Diagnostic Imaging Comments XRAYS OF FINGER--PER RADIOLOGIST REPORT AT 2213 FINDINGS: 3 views of the hand and 4th finger. There is soft tissue swelling about the distal aspect of the 4th finger. No displaced fracture or dislocation is appreciated. No radiopaque foreign body. A small amount of possible subcutaneous air is noted in the distal tip. IMPRESSION: Possible subcutaneous air versus fatty changes with soft tissue swelling noted. No fracture. Reviewed: Reviewed by Me Departure Impression Primary Impression: PUNCTURE WOUND LEFT 4TH FINGER Additional Impression: Pdvamramdi-nanjjkxwi-wgrcctk (DPT) vaccination administered at current visit Disposition: 01 HOME, SELF-CARE Condition: Stable Departure-Patient Inst. Decision time for Depature: 22:00 Referrals: NO,LOCAL PHYSICIAN (PCP/Family) Primary Care Physician Patient Instructions: Diphtheria and Tetanus Toxoids, and Acellular Pertussis Vaccine, Taking Care of Cuts, Scrapes, and Puncture Wounds Add. Discharge Instructions: SOAK IN WARM SOAPY WATER 2-3 TIMES A DAY APPLY ANTIBIOTIC OINTMENT AND FRESH DRESSING TWICE A DAY WEAR FINGER GUARD NEEDED FOR COMFORT TYLENOL AND MOTRIN NEEDED FOR PAIN ICE TO AREA AT 15-20 MINUTE INTERVALS FOLLOW UP WITH DR OF CHOICE NEEDED, RETURN TO ER IF PROBLEMS Scripts Sulfamethoxazole/Trimethoprim (Bactrim Ds Tablet) 1 Each Tablet 1 EACH PO BID, #14 TAB Prov: HASEEB FELDMAN DO 05/21/22 HASEEB FELDMAN DO May 21, 2022 21:46
[2022-05-21] MEDS ORDERED: SULF1TAB38 PO (22:03)
--- NOTE | 2022-05-21 22:11 | Diagnostic Imaging Report ---
INDICATION: Injury, pain, ring finger. EXAMINATION: Left fingers, 05/21/2022. FINDINGS: 3 views of the hand and 4th finger. There is soft tissue swelling about the distal aspect of the 4th finger. No displaced fracture or dislocation is appreciated. No radiopaque foreign body. A small amount of possible subcutaneous air is noted in the distal tip. IMPRESSION: Possible subcutaneous air versus fatty changes with soft tissue swelling noted. No fracture. Dictated by: Dictated on workstation # [id number]
[2022-05-21] MEDS ORDERED: RX-MUPIROCIN (BACTROBAN) 2% OINT 22 GM TUBE TOP ONE (22:15)
[2022-05-21] MEDS ORDERED: RX-TRIMETH/SULFA. 160-800 MG (BACTRIM DS) TAB PPK#2 PO ONE (22:15)
[2022-05-21 22:30] VITALS: BP 137/83
== END 2022-05-21 22:30 | disposition home or self-care (01) ==
LOC: EDUNIT# 21:22 → ER 21:23
DX: S61.235A Puncture wound without foreign body of left ring finger without damage to nail, initial encounter (principal); Z87.891 Personal history of nicotine dependence; Z23 Encounter for immunization; Z28.310 Unvaccinated for COVID-19; W29.8XXA Contact with other powered hand tools and household machinery, initial encounter; Y92.59 Other trade areas as the place of occurrence of the external cause; Y99.0 Civilian activity done for income or pay
CPT/HCPCS: 73140; 90715

== ENCOUNTER → 2022-11-12 | Outpatient (CLI) | payer BC ==
[~2022-11-12] MED LIST changes: +SULF1TAB38 PO
--- NOTE | 2022-11-12 13:19 | Diagnostic Imaging Report ---
MRI LT LOWER EXT JOINT W/O TECHNIQUE: Multiplanar, multisequence MR imaging of the left knee was performed without contrast. COMPARISON: None available. INDICATION: Left knee pain FINDINGS: MENISCI Medial meniscus: Normal. Lateral meniscus: Complex tear involves the body and anterior horn of the lateral meniscus. Incomplete radial tear at the junction of the anterior horn and body with horizontal cleavage tear extending throughout the remainder of the body and anterior horn. No para meniscal cyst. LIGAMENTS ACL: Intact. PCL: Intact. MCL: Intact. LCL: The lateral collateral ligamentous complex is intact. EXTENSOR MECHANISM The extensor mechanism is intact. CARTILAGE Medial compartment: Medial compartment articular cartilage is well preserved without focal high-grade chondromalacia. Lateral compartment: The lateral compartment articular cartilage is preserved without high-grade chondromalacia. Patellofemoral compartment: The patellofemoral articular cartilage is well preserved without high-grade chondromalacia. BONE No fracture, stress fracture or osteonecrosis. SOFT TISSUE No knee effusion or Jalloh's cyst. IMPRESSION: 1. Complex tear anterior horn and body of the lateral meniscus. 2. Articular cartilage is well preserved. Dictated by: Dictated on workstation # [id number]
== END ==
LOC: RAD 09:35
PROVIDERS: ATTEND Nurse Practitioner Family
DX: S83.282A Other tear of lateral meniscus, current injury, left knee, initial encounter (principal); Y93.44 Activity, trampolining; F43.0 Acute stress reaction; K21.9 Gastro-esophageal reflux disease without esophagitis; E78.49 Other hyperlipidemia; F33.1 Major depressive disorder, recurrent, moderate; X58.XXXA Exposure to other specified factors, initial encounter
CPT/HCPCS: 73721